=== PATIENT | male | born 1950 | race Caucasian/White ===

== ENCOUNTER 2020-08-25 22:51 | Inpatient (IN) | payer MEDICARE ==
[~2020-08-25] VITALS: Ht 175.3 cm; Wt 81.0 kg
[2020-08-25 23:17] LABS: BASOPHILS # (AUTO) 0.1 X10'3 (0-0.2); BASOPHILS % (AUTO) 0.8 % (0-1); EOSINOPHILS # (AUTO) 0.2 X10'3 (0-0.9); EOSINOPHILS % (AUTO) 3.3 % (0-6); HEMATOCRIT 34.9 % (42.0-52.0); HEMOGLOBIN 12.3 g/dl (14.0-17.9); LYMPHOCYTES # (AUTO) 1.3 X10'3 (1.1-4.8); LYMPHOCYTES % (AUTO) 18.8 % (21-51); MEAN CORPUSCULAR HEMOGLOBIN 32.1 PG (27.0-31.0); MEAN CORPUSCULAR HGB CONC 35.1 g/dL (33.0-36.5); MEAN CORPUSCULAR VOLUME 91.4 FL (78-98); MEAN PLATELET VOLUME 8.4 FL (7.4-10.4); MONOCYTES # (AUTO) 0.4 X10'3 (0-0.9); MONOCYTES % (AUTO) 6.3 % (2-12); NEUTROPHILS % (AUTO) 70.8 % (42-75); PLATELET COUNT 233 X10'3 (140-440); RED BLOOD COUNT 3.82 X10'6 (4.70-6.10); RED CELL DISTRIBUTION WIDTH 12.6 % (11.5-14.5); WHITE BLOOD COUNT 7.1 X10'3 (4.5-11.0)
[2020-08-25] MEDS ORDERED: aspirin 325mg tablet PO ONE (23:25)
[2020-08-25 23:26] LABS: ALANINE AMINOTRANSFERASE 14 U/L (12-78); ALBUMIN 3.3 G/DL (3.4-5.0); ALBUMIN/GLOBULIN RATIO 0.9 (1.1-1.5); ALKALINE PHOSPHATASE 71 IU/L (46-116); ANION GAP 6 (8-16); ASPARTATE AMINO TRANSFERASE 11 U/L (10-37); BILIRUBIN,TOTAL 0.3 MG/DL (0.1-1.0); BLOOD UREA NITROGEN 35 MG/DL (7-18); BUN/CREATININE RATIO 17.8 (5.4-32.0); CALCIUM 8.8 MG/DL (8.5-10.1); CHLORIDE 111 MMOL/L (99-107); CREATININE 1.97 MG/DL (0.60-1.10); GLUCOSE 118 MG/DL (70-104); POTASSIUM 4.3 MMOL/L (3.5-5.1); SODIUM 145 MMOL/L (135-145); TOTAL CARBON DIOXIDE 27.8 MMOL/L (24-32); TOTAL PROTEIN 6.8 G/DL (6.4-8.2); eGFR 34 ML/MIN
[2020-08-26] VITALS (12 sets, daily range): BP systolic 136–180; BP diastolic 66–100
[2020-08-26] MEDS ORDERED: clopidogrel 300mg tablet PO ONE (00:05)
[2020-08-26 00:24] LABS: D-DIMER 1.47 MG/L FEU (0-0.50)
--- NOTE | 2020-08-26 00:48 | NUR ---
Pt states CP is gone at this time.
[2020-08-26] MEDS ORDERED: enoxaparin 100mg/ml syringe SUBCUT ONE (01:00)
[2020-08-26] MEDS ORDERED: enoxaparin 80mg/0.8ml syringe SUBCUT ONE (01:05)
[2020-08-26] MEDS ORDERED: magnesium hydroxide 30ml (MOM) UD suspension PO PRN (01:50)
[2020-08-26] MEDS ORDERED: potassium CL 10mEq/100ml bag 100 ML IV PRN ×2 (01:50)
[2020-08-26] MEDS ORDERED: ondansetron/PF 4mg/2ml inj IV PRN (01:50)
[2020-08-26] MEDS ORDERED: mag hydrox/Alum hydrox/simeth 30ml oral suspension PO PRN (01:50)
[2020-08-26] MEDS ORDERED: potassium Cl 20 mEq SR tablet PO PRN ×2 (01:50)
--- NOTE | 2020-08-26 02:07 | NUR ---
[facility] PHONE # [phone]
--- NOTE | 2020-08-26 02:15 | NUR ---
Spoke to who states pt has been seeing a urologist , Dr Perez. She also states he is bleeding internally but they do not know where. She states he should not be taking blood thinners. Dr. Sheridan informed of what has advised.
[2020-08-26] MEDS ORDERED: FLO0.4C PO (02:27)
[2020-08-26] MEDS ORDERED: METF500T PO (02:27)
[2020-08-26] MEDS ORDERED: SERT25TA PO (02:27)
[2020-08-26] MEDS ORDERED: LISI-600 PO (02:27)
[2020-08-26] MEDS ORDERED: glucagon, human recombinant 1mg kit SUBCUT PRN (04:05)
[2020-08-26] MEDS ORDERED: insulin Lispro (HumaLOG) vial - multi-dose SQ SCH (04:05)
[2020-08-26] MEDS ORDERED: MESSAGE TO PHARMACY PO ONE (04:05)
[2020-08-26] MEDS ORDERED: dextrose ORAL solution 15 GM/59 ML bottle PO PRN ×2 (04:05)
[2020-08-26] MEDS ORDERED: dextrose 50%-water 50ml dispensing syringe IV PRN ×2 (04:05)
[2020-08-26 04:21] LABS: HEMOGLOBIN A1C 5.4 % (4.5-6.2)
[2020-08-26] MEDS: acetaminophen 325mg tablet PO PRN (05:22)
--- NOTE | 2020-08-26 05:23 | NUR ---
Pt urinates approx once an hour
--- NOTE | 2020-08-26 07:15 | NUR ---
Received report from ER. Had opportunity to ask questions concerning Pt's care and plan. Awaiting arrival of Pt to room 3011X.
--- NOTE | 2020-08-26 07:40 | NUR ---
Pt arrived to room 3012A. Pt moved over to bed and tele-box applied. vitals WNL. Will continue to monitor Pt.
[2020-08-26] MEDS: K and/or MAG REPLACEMENT MC SCH ×3 (08:00→20:45)
--- NOTE | 2020-08-26 08:32 | NUR ---
PAGER ID: [phone] MESSAGE: Re: Joshua Angelo. Room: 301. VQ scan ordered for Pt. [employer] says he needs Covid test before they can do VQ scan. -[facility] #[id number] Dr. Bull paged concerning Pt's VQ scan.
[2020-08-26] MEDS: tamsulosin 0.4mg capsule PO SCH (10:05)
[2020-08-26] MEDS: sertraline 50mg tablet PO SCH (10:05)
[2020-08-26] MEDS: lisinopril 5mg tablet PO SCH (10:06)
[2020-08-26] MEDS ORDERED: CLOP75TA33 PO (10:17)
[2020-08-26] MEDS ORDERED: nitroGLYCERIN 0.4mg SUBLingual tab SL PRN (10:35)
[2020-08-26] MEDS ORDERED: regadenoson 0.4mg/5ml syringe IV PRN (10:35)
[2020-08-26] MEDS ORDERED: metoprolol tartrate 1mg/ml inj IV PRN (10:35)
[2020-08-26] MEDS ORDERED: aminophylline 250mg/10ml inj. IV PRN (10:35)
[2020-08-26] MEDS: heparin, porcine 5000 units/ml vial SQ SCH ×2 (10:42→20:42)
[2020-08-26] MEDS: nystatin 15 GM powder TP SCH ×2 (13:25→20:42)
--- NOTE | 2020-08-26 15:44 | NUR ---
PAGER ID: [phone] MESSAGE: Re: Angelo Lewis. Room: 3012A. Awaiting results of yoan scan. Can Pt eat? -[facility] #[id number] Dr. Bull paged concerning Pt's diet.
--- NOTE | 2020-08-26 18:27 | NUR ---
Problems reprioritized. Patient report given, questions answered & plan of care reviewed with Robert MALHOTRA.
--- NOTE | 2020-08-26 18:30 | NUR ---
Patient in room PCU 3012. I have received report from Adeel RN and ROSCOE Quan and had the opportunity to ask questions and assume patient care. Patient resting in bed, no signs of distress. Safety measures in place, bed in low and locked position. Call light and personal items within reach. Will continue to monitor throughout shift.
[2020-08-26] MEDS ORDERED: lisinopril 5mg tablet PO ONE (22:25)
--- NOTE | 2020-08-26 22:34 | NUR ---
Patient has blood pressure of 180/100 with monitor, 184/[address] Sheridan, he ordered Lisinopril 5mg PO now. Will continue to monitor.
--- NOTE | 2020-08-26 23:04 | NUR ---
Blood pressure decreased to 153/81, after receiving Lisinopril 5mg. Denies chest pain, head ache. Will continue to monitor.
[2020-08-27 02:00] VITALS: BP 191/102
[2020-08-27] MEDS ORDERED: enalaprilat dihydrate 2.5mg/2ml vial IV ONE (02:40)
--- NOTE | 2020-08-27 02:56 | NUR ---
Patient blood pressure of 186/102, contacted Dr. Sheridan, he ordered Vasotec 2.5mg IV to be given now. Denies headache, nausea, vision changes, or chest pain. Will continue to monitor.
[2020-08-27] MEDS ORDERED: amLODIPine 2.5mg tablet PO ONE (04:15)
--- NOTE | 2020-08-27 04:26 | NUR ---
Called Dr. Holman regarding blood pressure of 185/98. He ordered an additional 2.5mg of Norvasc. Will continue to monitor.
--- NOTE | 2020-08-27 05:36 | NUR ---
Patient showing signs of blood pressure decreasing, 168/90. Resting comfortably in bed. Safety measures in place, bed in low and locked position. Call light and personal items within reach. Will continue to monitor for remainder of shift.
[2020-08-27 05:47] LABS: BASOPHILS # (AUTO) 0.1 X10'3 (0-0.2); BASOPHILS % (AUTO) 0.9 % (0-1); EOSINOPHILS # (AUTO) 0.3 X10'3 (0-0.9); EOSINOPHILS % (AUTO) 3.6 % (0-6); HEMOGLOBIN 12.6 g/dl (14.0-17.9); LYMPHOCYTES # (AUTO) 1.3 X10'3 (1.1-4.8); LYMPHOCYTES % (AUTO) 17.3 % (21-51); MEAN CORPUSCULAR HEMOGLOBIN 31.3 PG (27.0-31.0); MEAN CORPUSCULAR VOLUME 89.5 FL (78-98); MONOCYTES # (AUTO) 0.6 X10'3 (0-0.9); MONOCYTES % (AUTO) 7.3 % (2-12); NEUTROPHILS # (AUTO) 5.4 X10'3 (1.8-7.7); NEUTROPHILS % (AUTO) 70.9 % (42-75); PLATELET COUNT 224 X10'3 (140-440); RED BLOOD COUNT 4.02 X10'6 (4.70-6.10); RED CELL DISTRIBUTION WIDTH 12.4 % (11.5-14.5); WHITE BLOOD COUNT 7.7 X10'3 (4.5-11.0)
[2020-08-27 06:00] VITALS: BP 168/91
[2020-08-27 06:10] LABS: ALANINE AMINOTRANSFERASE 16 U/L (12-78); ALBUMIN 3.2 G/DL (3.4-5.0); ALBUMIN/GLOBULIN RATIO 0.9 (1.1-1.5); ALKALINE PHOSPHATASE 68 IU/L (46-116); ANION GAP 9 (8-16); ASPARTATE AMINO TRANSFERASE 17 U/L (10-37); BILIRUBIN,TOTAL 0.5 MG/DL (0.1-1.0); BLOOD UREA NITROGEN 32 MG/DL (7-18); BUN/CREATININE RATIO 18.8 (5.4-32.0); CHLORIDE 110 MMOL/L (99-107); GLUCOSE 118 MG/DL (70-104); POTASSIUM 4.1 MMOL/L (3.5-5.1); SODIUM 146 MMOL/L (135-145); TOTAL PROTEIN 6.7 G/DL (6.4-8.2); eGFR 40 ML/MIN
--- NOTE | 2020-08-27 06:13 | NUR ---
Problems reprioritized. Patient report given, questions answered & plan of care reviewed with Adeel RN and ROSCOE Quan. Patient's blood pressure continuing to improve. Safety measures in place, bed in low and locked position. Call light and personal items within reach. Will continue to monitor. for remainder of shift.
--- NOTE | 2020-08-27 06:15 | NUR ---
Patient in room PCU 3012. I have received report from Robert MALHOTRA and had the opportunity to ask questions and assume patient care.
[2020-08-27] MEDS: tamsulosin 0.4mg capsule PO SCH (07:24)
[2020-08-27] MEDS: sertraline 50mg tablet PO SCH (07:24)
[2020-08-27] MEDS: heparin, porcine 5000 units/ml vial SQ SCH ×2 (07:25→21:03)
[2020-08-27] MEDS: lisinopril 5mg tablet PO SCH (07:29)
[2020-08-27] MEDS: nystatin 15 GM powder TP SCH ×3 (07:30→21:03)
[2020-08-27 08:05] VITALS: BP 150/90
[2020-08-27] MEDS ORDERED: docusate sod 100mg capsule PO ONE (10:45)
[2020-08-27] MEDS ORDERED: lisinopril 5mg tablet PO ONE (10:45)
--- NOTE | 2020-08-27 10:45 | NUR ---
Spoke with Dr. Bull concerning Pt's home dose of plavix 75mg PO. Dr. Bull okayed plavix to be restarted with Pt's slight hematuria. HGB stable yesterday and today.
--- NOTE | 2020-08-27 10:54 | NUR ---
per Dr. Bull; continue Pt's plavix.
[2020-08-27 11:00] VITALS: BP 124/79
[2020-08-27] MEDS: clopidogrel 75mg tablet PO SCH (11:13)
[2020-08-27 11:36] LABS: CLARITY,URINE SLIGHTLY CLOUDY (Clear); COLOR,URINE RED (Yellow); GLUCOSE, URINE NEGATIVE (Neg); KETONES,URINE NEGATIVE (Neg); LEUKOCYTE ESTERASE ,URINE TRACE (Neg); NITRITES, URINE NEGATIVE (Neg); OCCULT BLOOD,URINE LARGE (Neg); PH,URINE 8.5 (4.8-8.0); PROTEIN,URINE >=300 mg/dl (Neg); UROBILINOGEN,URINE 0.2 E.U/dL (0.2-1.0)
[2020-08-27 11:51] LABS: UA COLLECTION TYPE CONDOM CATH
[2020-08-27 12:28] LABS: BACTERIA,URINE 4+ /HPF (Neg); RBC,URINE 0-2 /HPF (0-2); WBC,URINE 0-4 /HPF (0-4)
[2020-08-27 12:29] LABS: SQUAMOUS EPITHELIAL CELL,UR MODERATE /LPF (FEW); TRIPLE PHOSPHATE CRYST 2+ /HPF (NEGATIVE)
--- NOTE | 2020-08-27 13:10 | NUR ---
PAGER ID: [phone] MESSAGE: Re: Angelo Lewis. Room: 3012A. Pt's would like to speak to you concerning an update. Xi -[facility] #[id number] Dr. Bull paged concerning Pt's .
[2020-08-27 13:41] LABS: CLARITY,URINE CLOUDY (Clear); COLOR,URINE RED (Yellow); GLUCOSE, URINE NEGATIVE (Neg); KETONES,URINE NEGATIVE (Neg); LEUKOCYTE ESTERASE ,URINE TRACE (Neg); NITRITES, URINE NEGATIVE (Neg); OCCULT BLOOD,URINE LARGE (Neg); PH,URINE 6.5 (4.8-8.0); PROTEIN,URINE >=300 mg/dl (Neg); UROBILINOGEN,URINE 0.2 E.U/dL (0.2-1.0)
[2020-08-27 13:48] LABS: UA COLLECTION TYPE FOLEY CATH
[2020-08-27 14:02] LABS: WBC,URINE 0-4 /HPF (0-4)
[2020-08-27 14:03] LABS: BACTERIA,URINE FEW /HPF (Neg); RBC,URINE TNTC /HPF (0-2)
[2020-08-27 14:04] LABS: SQUAMOUS EPITHELIAL CELL,UR FEW /LPF (FEW)
[2020-08-27] MEDS: acetaminophen 325mg tablet PO PRN (15:14)
[2020-08-27 18:00] VITALS: BP 136/67
--- NOTE | 2020-08-27 18:00 | NUR ---
[place] documentation: I have reviewed and agree with all interventions, assessments performed and documented by Lianne MALHOTRA.
--- NOTE | 2020-08-27 18:15 | NUR ---
Problems reprioritized. Patient report given, questions answered & plan of care reviewed with Robert MALHOTRA.
--- NOTE | 2020-08-27 18:30 | NUR ---
Patient in room PCU 3012. I have received report from ROSCOE Denis and had the opportunity to ask questions and assume patient care. No signs of distress. Safety measures in place, bed in low and locked position, safety socks on. Call light and personal items within reach. Will continue to monitor throughout shift.
[2020-08-27] MEDS: docusate sod 100mg capsule PO SCH (20:00)
[2020-08-27] MEDS: K and/or MAG REPLACEMENT MC SCH (20:00)
[2020-08-27] MEDS ORDERED: LORazepam 2 mg/ml vial IV PRN (20:50)
[2020-08-27] MEDS ORDERED: LORazepam 1 MG tablet PO PRN (20:55)
[2020-08-27] MEDS: lisinopril 10 MG tablet PO SCH (21:03)
[2020-08-27 22:00] VITALS: BP 151/91
[2020-08-28 02:00] VITALS: BP 141/73
[2020-08-28 06:00] VITALS: BP 167/91
--- NOTE | 2020-08-28 06:57 | NUR ---
Problems reprioritized. Patient report given, questions answered & plan of care reviewed with ROSCOE Kay patient resting in bed. No signs of distress. Safety measures in place, bed in low and locked position. Call light and personal items within reach. Will continue to monitor for remainder of shift.
[2020-08-28 07:00] VITALS: BP 185/106
--- NOTE | 2020-08-28 07:11 | NUR ---
Patient in room PCU 3012. I have received report from Robert MALHOTRA and had the opportunity to ask questions and assume patient care.
[2020-08-28 07:43] LABS: BASOPHILS # (AUTO) 0.1 X10'3 (0-0.2); BASOPHILS % (AUTO) 0.6 % (0-1); EOSINOPHILS # (AUTO) 0.4 X10'3 (0-0.9); EOSINOPHILS % (AUTO) 5.5 % (0-6); HEMOGLOBIN 12.2 g/dl (14.0-17.9); LYMPHOCYTES # (AUTO) 1.8 X10'3 (1.1-4.8); MEAN CORPUSCULAR HEMOGLOBIN 31.4 PG (27.0-31.0); MEAN CORPUSCULAR HGB CONC 34.8 g/dL (33.0-36.5); MEAN CORPUSCULAR VOLUME 90.1 FL (78-98); MEAN PLATELET VOLUME 8.4 FL (7.4-10.4); MONOCYTES # (AUTO) 0.6 X10'3 (0-0.9); MONOCYTES % (AUTO) 7.5 % (2-12); NEUTROPHILS # (AUTO) 5.3 X10'3 (1.8-7.7); NEUTROPHILS % (AUTO) 64.4 % (42-75); PLATELET COUNT 241 X10'3 (140-440); RED BLOOD COUNT 3.88 X10'6 (4.70-6.10); RED CELL DISTRIBUTION WIDTH 12.6 % (11.5-14.5); WHITE BLOOD COUNT 8.2 X10'3 (4.5-11.0)
[2020-08-28] MEDS: K and/or MAG REPLACEMENT MC SCH (08:00)
[2020-08-28 08:10] LABS: ALANINE AMINOTRANSFERASE 14 U/L (12-78); ALBUMIN 3.2 G/DL (3.4-5.0); ALBUMIN/GLOBULIN RATIO 0.9 (1.1-1.5); ALKALINE PHOSPHATASE 66 IU/L (46-116); ANION GAP 10 (8-16); ASPARTATE AMINO TRANSFERASE 12 U/L (10-37); BILIRUBIN,TOTAL 0.4 MG/DL (0.1-1.0); BLOOD UREA NITROGEN 42 MG/DL (7-18); BUN/CREATININE RATIO 23.2 (5.4-32.0); CALCIUM 8.9 MG/DL (8.5-10.1); CHLORIDE 109 MMOL/L (99-107); CREATININE 1.81 MG/DL (0.60-1.10); GLUCOSE 102 MG/DL (70-104); POTASSIUM 4.1 MMOL/L (3.5-5.1); SODIUM 145 MMOL/L (135-145); TOTAL CARBON DIOXIDE 26.5 MMOL/L (24-32); TOTAL PROTEIN 6.7 G/DL (6.4-8.2); eGFR 37 ML/MIN
--- NOTE | 2020-08-28 08:15 | NUR ---
Patient taken down to NV and xray.
[2020-08-28] MEDS: clopidogrel 75mg tablet PO SCH (09:44)
[2020-08-28] MEDS: heparin, porcine 5000 units/ml vial SQ SCH (09:44)
[2020-08-28] MEDS: nystatin 15 GM powder TP SCH ×2 (09:44→13:26)
[2020-08-28] MEDS: docusate sod 100mg capsule PO SCH (09:44)
[2020-08-28] MEDS: lisinopril 10 MG tablet PO SCH (09:45)
[2020-08-28] MEDS: sertraline 50mg tablet PO SCH (09:45)
[2020-08-28] MEDS: tamsulosin 0.4mg capsule PO SCH (09:45)
[2020-08-28 11:00] VITALS: BP 158/91
[2020-08-28] MEDS ORDERED: LISI10TA4 PO (11:31)
--- NOTE | 2020-08-28 12:42 | NUR ---
Patient OK to discharge per MD orders. Patient was educated on discharge instructions and , Xi, will be picking him up. Tele was removed and PIV removed, pt tolerated well. All items were collected and sent with patient. Patient was dressed and put into wheelchair. Patient escorted via wheelchair to front Lobby picked up by .
== END 2020-08-28 14:35 | disposition home health service (06) | DRG 313 ==
LOC: ER 22:53 → ED HOLD 08-26 01:50 → PCU 3S 08-26 07:34
PROVIDERS: ADMIT Internal Medicine; ATTEND Internal Medicine
PROC: 4A02XM4 Measurement of Cardiac Total Activity, External Approach (ICD-10-PCS; principal; 2020-08-26)
PROC: 3E073KZ Introduction of Other Diagnostic Substance into Coronary Artery, Percutaneous Approach (ICD-10-PCS; 2020-08-26)
PROC: CB121ZZ Planar Nuclear Medicine Imaging of Lungs and Bronchi using Technetium 99m (Tc-99m) (ICD-10-PCS; 2020-08-28)
DX: R07.9 Chest pain, unspecified (principal); N17.9 Acute kidney failure, unspecified; F32.9 Major depressive disorder, single episode, unspecified; I12.9 Hypertensive chronic kidney disease with stage 1 through stage 4 chronic kidney disease, or unspecified chronic kidney disease; E11.22 Type 2 diabetes mellitus with diabetic chronic kidney disease; N18.30 Chronic kidney disease, stage 3 unspecified; E86.0 Dehydration; R31.9 Hematuria, unspecified; N40.0 Benign prostatic hyperplasia without lower urinary tract symptoms; Z79.02 Long term (current) use of antithrombotics/antiplatelets; Z79.84 Long term (current) use of oral hypoglycemic drugs; Z79.899 Other long term (current) drug therapy; Z86.73 Personal history of transient ischemic attack (TIA), and cerebral infarction without residual deficits; Z88.7 Allergy status to serum and vaccine; Z99.3 Dependence on wheelchair
CPT/HCPCS: 36415; 71045; 71250; 78452; 78582; 80053; 81001; 82948; 83036; 83880; 84484; 85025; 85379; 87081; 92508; 92616; 93005; 93017; 93306; 93308; 93970; 96372; 99285; A9500; A9539; A9540; G0378; J1644; J1650; J1815; J2785

== ENCOUNTER 2020-10-18 13:56 | Emergency (ER) | payer MEDICARE ==
[~2020-10-18] VITALS: Ht 167.6 cm; Wt 79.5 kg
[~2020-10-18 13:56] MED LIST: ASPI81TA52 PO; BACL-11 PO; FLO0.4C PO; LEVO500T89 PO; LISI10TA4 PO; METF500T PO; SERT25TA PO
[2020-10-18 15:13] LABS: BASOPHILS # (AUTO) 0.1 X10'3 (0-0.2); BASOPHILS % (AUTO) 0.6 % (0-1); EOSINOPHILS # (AUTO) 0.1 X10'3 (0-0.9); EOSINOPHILS % (AUTO) 0.6 % (0-6); HEMATOCRIT 37.3 % (42.0-52.0); HEMOGLOBIN 12.7 g/dl (14.0-17.9); LYMPHOCYTES # (AUTO) 1.5 X10'3 (1.1-4.8); LYMPHOCYTES % (AUTO) 12.2 % (21-51); MEAN CORPUSCULAR HEMOGLOBIN 31.5 PG (27.0-31.0); MEAN CORPUSCULAR VOLUME 92.6 FL (78-98); MEAN PLATELET VOLUME 7.8 FL (7.4-10.4); MONOCYTES # (AUTO) 0.7 X10'3 (0-0.9); MONOCYTES % (AUTO) 6.1 % (2-12); NEUTROPHILS # (AUTO) 9.8 X10'3 (1.8-7.7); NEUTROPHILS % (AUTO) 80.5 % (42-75); PLATELET COUNT 296 X10'3 (140-440); RED BLOOD COUNT 4.03 X10'6 (4.70-6.10); WHITE BLOOD COUNT 12.2 X10'3 (4.5-11.0)
[2020-10-18 15:27] LABS: ALANINE AMINOTRANSFERASE 24 U/L (12-78); ALBUMIN 3.2 G/DL (3.4-5.0); ALBUMIN/GLOBULIN RATIO 0.9 (1.1-1.5); ALKALINE PHOSPHATASE 67 IU/L (46-116); ANION GAP 9 (8-16); ASPARTATE AMINO TRANSFERASE 18 U/L (10-37); BILIRUBIN,TOTAL 0.4 MG/DL (0.1-1.0); BLOOD UREA NITROGEN 26 MG/DL (7-18); CALCIUM 9.1 MG/DL (8.5-10.1); CHLORIDE 108 MMOL/L (99-107); CREATININE 1.62 MG/DL (0.60-1.10); GLUCOSE 133 MG/DL (70-104); SODIUM 143 MMOL/L (135-145); TOTAL CARBON DIOXIDE 26.4 MMOL/L (24-32); TOTAL PROTEIN 6.9 G/DL (6.4-8.2); eGFR 42 ML/MIN
[2020-10-18] MEDS ORDERED: normal saline 1000ML IV soln IVB ONE (16:35)
[2020-10-18 17:00] LABS: CLARITY,URINE CLEAR (Clear); COLOR,URINE YELLOW (Yellow); GLUCOSE, URINE NEGATIVE (Neg); KETONES,URINE NEGATIVE (Neg); LEUKOCYTE ESTERASE ,URINE NEGATIVE (Neg); NITRITES, URINE NEGATIVE (Neg); OCCULT BLOOD,URINE SMALL (Neg); PROTEIN,URINE 100 mg/dl (Neg); UROBILINOGEN,URINE 0.2 E.U/dL (0.2-1.0)
[2020-10-18 17:03] LABS: UA COLLECTION TYPE STRAIGHT CATH
[2020-10-18 17:04] LABS: BACTERIA,URINE NONE SEEN /HPF (Neg); MUCUS STRANDS FEW /LPF (Neg); RBC,URINE 0-2 /HPF (0-2); SQUAMOUS EPITHELIAL CELL,UR FEW /LPF (FEW); WBC,URINE NONE SEEN /HPF (0-4)
[2020-10-18 17:15] LABS: URINE AMPHETAMINE SCREEN NEGATIVE (Neg); URINE BARBITUATE SCREEN NEGATIVE (Neg); URINE BENZODIAZEPINES SCREEN NEGATIVE (Neg); URINE CANNABINOID SCREEN NEGATIVE (Neg); URINE COCAINE SCREEN NEGATIVE (Neg); URINE METHADONE SCREEN NEGATIVE (Neg); URINE OPIATE SCREEN NEGATIVE (Neg); URINE PHENCYCLIDINE SCREEN NEGATIVE (Neg)
[2020-10-18] MEDS ORDERED: morphine 4 MG/ML inj SYRINge IV ONE ×2 (17:20→18:05)
[2020-10-18] MEDS ORDERED: amox tr/potassium clavulanate 875/125mg TAB PO ONE (18:10)
[2020-10-18] MEDS ORDERED: AMOX-580 PO (18:14)
[2020-10-18] MEDS ORDERED: HYDR-3965 PO (18:14)
[2020-10-18 20:03] VITALS: BP 158/101
== END 2020-10-18 18:45 | disposition home or self-care (01) ==
LOC: ER 13:56
DX: R41.82 Altered mental status, unspecified (principal); H66.90 Otitis media, unspecified, unspecified ear; R53.1 Weakness; I10 Essential (primary) hypertension; E11.9 Type 2 diabetes mellitus without complications; Z86.73 Personal history of transient ischemic attack (TIA), and cerebral infarction without residual deficits; Z88.7 Allergy status to serum and vaccine; Z79.82 Long term (current) use of aspirin; Z79.84 Long term (current) use of oral hypoglycemic drugs; Z79.899 Other long term (current) drug therapy
CPT/HCPCS: 36415; 70450; 71045; 80053; 80305; 81001; 82140; 84145; 84443; 85025; 96361; 96374; 96376; 99285; J2270; J7030